=== PATIENT | female | born 1955 | race African-American/Black ===

== ENCOUNTER 2018-03-18 11:59 | Outpatient (CLI) | payer MEDICARE ==
[2014-07-13 12:42] VITALS: BP 137/69
[2018-03-18 12:36] LABS: eGFR (Non-African) > 60
[2018-03-18 16:02] LABS: BASO % 0.8 % (0.0-1.5); EOS % 4.9 % (0.0-6.8); LYMPH ABS # 3.07 thou/uL (0.60-4.00); MCV 104.8 fL (80.0-100.0); MONOCYTE % 5.7 % (0.0-11.0); MONOCYTE ABS # 0.35 thou/uL (0.00-0.90); PLATELET COUNT 255 thou/uL (130-400)
== END 2018-03-18 12:00 ==
LOC: LAB 11:59
PROVIDERS: ATTEND Family Medicine
DX: E78.00 Pure hypercholesterolemia, unspecified (principal); D53.9 Nutritional anemia, unspecified; I10 Essential (primary) hypertension
CPT/HCPCS: 36415; 80053; 80061; 85025

== ENCOUNTER 2018-10-22 13:37 | Emergency (ER) | payer MEDICARE ==
--- NOTE | 2018-10-22 14:05 | ED Physician Documentation ---
Sore Throat/Dental Pain - HISTORIAN Historian: patient - HPI Chief Complaint: Sore Throat Additional Information: several days cough sore throat lo gr fever Onset: days ago (4) Associated Symptoms: fever, sore throat, moderate Further Comments: yes (prod cough yellow but clearing now) - ROS CONST: no problems CVS/RESP: none. denies: chest pain, shortness of breath, palpitations MS/SKIN/LYMPH: denies: muscle aches, leg swelling, ankle swelling NEURO/PSYCH: none - PAST HX Past History: none (prev card arrythmia), other Other History: none Allergies/Adverse Reactions: Allergies Allergy/AdvReac Type Severity Reaction Status Date / Time No Known Allergies Allergy Verified 10/22/18 14:03 - SOCIAL HX Smoking History: cigarettes Alcohol Use: none - FAMILY HX Family History: Yes - VITAL SIGNS Vital Signs: Vital Signs Temp Pulse Resp BP Pulse Ox 137/69 07/13/14 12:41 - REVIEWED ASSESSMENTS Nursing Assessment Reviewed: Yes Vitals Reviewed: Yes ED Results Lab/Radiology - Lab Results Lab Results: rqpid strept= pos - Orders Orders: ED Orders Category Date Time Status Rapid Strep [GRP A STREP SCREEN] Stat Lab 10/22/18 Ordered Sore throat Physical Exam - EXAM General Appearance: mild distress Head/Neck: head nml inspection, no lymphadenopathy, cervical lymphadenopathy, anterior. No: pain over sinuses, mandibular swelling (R), mandibular swelling (L) Mouth/Throat: lips nml, gums nml. No: pharynx nml Ear/Nose: nml inspection Respiratory: no resp. distress, breath sounds nml CVS: reg. rate & rhythm, heart sounds nml Abdomen: soft, non-tender Extremities: non-tender, nml ROM Skin: warm/dry, normal color. No: cyanosis, diaphoresis, jaundice, mottled Neuro/Psych: oriented x3, mood/affect nml Discharge Clincal Impression: strept pharyngitis Referrals: Marko Harris MD [Primary Care Provider] - 2 Days Condition: Good Disposition: 01 HOME, SELF-CARE Decision to Admit: NO Decision Time: 14:12
[2018-10-22 14:10] VITALS: BP 116/78
== END 2018-10-22 14:13 | disposition home or self-care (01) ==
LOC: ED 13:37
DX: J02.0 Streptococcal pharyngitis (principal); Z72.0 Tobacco use
CPT/HCPCS: 87880; 99283

== ENCOUNTER 2019-04-10 09:52 | Emergency (ER) | payer MEDICARE ==
--- NOTE | 2019-04-10 10:05 | ED Physician Documentation ---
Nausea/Vomiting/Diarrhea - HISTORIAN Historian: patient, spouse - HPI Chief Complaint: Nausea,Vomiting,Diarrhea Additional Information: 63 year old female presents to the ER with . states that patient was not feeling well last night. She has been constipated and has been taking laxatives. She ate some fried chicken and fried apples last night. Denies being around anyone ill; had an episode this morning where she got hot and started sweating; then she had an episode of emesis. She states that she still feels nauseas and very weak. She took her Metoprolol this morning. Onset: hours Duration: waxing, waning Timing: gradual onset Context: denies: out of country travel, bad food Severity: moderate - Associated Symptoms Vomiting: mild, bilious (1 episode) Diarrhea: mild Abdominal Pain: burning, epigastric - ROS CONST: none CVS/RESP: denies: chest pain, shortness of breath GI/: constipation EYES/ENT: none MS/SKIN/LYMPH: denies: joint pain NEURO/PSYCH: none - PAST HX Past History: other (OA, ANSON) Other History: cardiac disease (PSVT with ablasion, HLD) Surgeries/Procedures: other (cardiac ablasion) Immunizations: UTD Allergies/Adverse Reactions: Allergies Allergy/AdvReac Type Severity Reaction Status Date / Time No Known Allergies Allergy Verified 04/10/19 10:14 Home Medications: Ambulatory Orders Medication Instructions Recorded Metoprolol Succinate [Toprol Xl] 1 tab PO DAILY 04/10/19 Ondansetron HCl Rapdis [Zofran Odt] 4 mg PO Q6H PRN #10 tab.rapdis 04/10/19 - SOCIAL HX Smoking History: greater than 1 pack/day Drug Use: none - FAMILY HX Family History: none - VITAL SIGNS Vital Signs: Vital Signs Temp Pulse Resp BP Pulse Ox 98.3 F 53 L 15 117/72 94 04/10/19 12:20 04/10/19 12:20 04/10/19 12:20 04/10/19 12:20 04/10/19 12:20 - REVIEWED ASSESSMENTS Nursing Assessment Reviewed: Yes Vitals Reviewed: Yes Progress - Progress Progress: 11:55 Patient sitting up to the side of the bed; feeling much better; nausea is almost gone; feels ready to go home. - EKG/XRAY/CT EKG: rhythm (SB with sinus arrhythmia at 53) ED Results Lab/Radiology - Lab Results Lab Results: Lab Results 04/10/19 04/10/19 10:12 10:12 WBC 7.10 K/ul K/ul (4.00-12.00) RBC 3.71 M/ul L M/ul (3.90-5.20) Hgb 12.6 g/dL g/dL (11.5-16.0) Hct 38.0 % % (34.5-46.5) MCV 102.0 fl H fl (80.0-100.0) MCH 34.0 pg pg (28.0-34.0) MCHC 33.2 g/dL g/dL (30.0-36.0) RDW 9.7 % L % (11.3-14.3) Plt Count 202 K/mm3 K/mm3 (130-400) Neut % (Auto) 67.0 % % (39.0-79.0) Lymph % (Auto) 23.6 % % (16.0-50.0) Bledsoe % (Auto) 7.0 % % (0.0-11.0) Eos % (Auto) 2.0 % % (0.0-6.8) Baso % (Auto) 0.4 % % (0.0-1.5) Neut # (Auto) 4.7 # k/uL # k/uL (1.4-7.7) Lymph # (Auto) 1.7 # k/uL # k/uL (0.6-4.0) Bledsoe # (Auto) 0.5 # k/uL # k/uL (0.0-0.9) Eos # (Auto) 0.1 # k/uL # k/uL (0.0-0.6) Baso # (Auto) 0.0 # k/uL # k/uL (0.0-0.5) Sodium 142 mmol/L mmol/L (137-145) Potassium 3.5 mmol/L mmol/L (3.5-5.1) Chloride 103 mmol/L mmol/L (98-107) Carbon Dioxide 25 mmol/L mmol/L (22-30) Anion Gap 17.5 BUN 13 mg/dL mg/dL (7-17) Creatinine 0.53 mg/dL mg/dL (0.52-1.04) Est GFR ( Amer) > 60 (60 - ) Est GFR (Non-Af Amer) > 60 (60 - ) Glucose 169 mg/dL H mg/dL (74-106) Calcium 9.4 mg/dL mg/dL (8.4-10.2) Total Bilirubin 1.5 mg/dL H mg/dL (0.2-1.3) AST 97 U/L H U/L (15-46) ALT 38 U/L H U/L (0-35) Alkaline Phosphatase 133 U/L H U/L (38-126) Troponin I < 0.012 ng/mL L ng/mL (0.012-0.034) Total Protein 9.8 g/dL H g/dL (6.3-8.2) Albumin 4.6 g/dL g/dL (3.5-5.0) Amylase 82 U/L U/L (30-110) Lipase 47 U/L U/L (23-300) - Radiology Radiology Impressions: Exam: CT abdomen and pelvis with contrast. History: Elevated liver enzymes. Nausea and vomiting. Axial images through the abdomen and pelvis after IV infusion of 90 cc Omnipaque is submitted along with sagittal and coronal reformatted images. The visualized lower lung galicia are clear. A moderate size hiatal hernia is identified. No free intraperitoneal air is identified. The gallbladder is distended without stones. The liver, spleen and pancreas are normal attenuation and enhancement. The adrenal glands are normal configuration. The abdominal aorta is of normal caliber. No periaortic lymphadenopathy is identified. Both kidneys are normal attenuation and enhancement without hydronephrosis. The urinary bladder is partially distended. The uterus is deviated to the right of midline and is anteflexed. Surgical clips in the adnexa bilaterally indicates previous sterilization. The appendix is of normal configuration. The small bowel is of normal caliber. Air and stool seen throughout the large intestine. No bony abnormalities are identified. Impression: Moderate size hiatal hernia. No hydronephrosis. Nonspecific bowel gas pattern. The appendix is of normal configuration. No inflammatory changes in the mesentery or ascites is identified. - Orders Orders: ED Orders Category Date Time Status Continuous EKG monitoring Q30M Care 04/10/19 09:58 Active Continuous Pulse Oximetry Q30M Care 04/10/19 09:[address] IV Lock 1T Care 04/10/19 09:[address] ABD & PELVIS W & W/O CON Stat Exams 04/10/19 Completed AMYLASE Routine Lab 04/10/19 10:12 Completed CBC/PLATELET/DIFF Stat Lab 04/10/19 10:12 Completed CMP Stat Lab 04/10/19 10:12 Completed LIPASE Stat Lab 04/10/19 10:12 Completed TROPONIN I Stat Lab 04/10/19 10:12 Completed URINALYSIS Routine Lab 04/10/19 10:11 Ordered 0.9 % Sodium Chloride [Normal Saline] 1,000 ml Med 04/10/19 10:02 Discontinued IV Q1H Ondansetron HCl/Pf [Zofran] Med 04/10/19 10:03 Discontinued 4 mg IVP NOW ONE Promethazine HCl [Phenergan] 25 mg Med 04/10/19 10:41 Discontinued 0.9 % Sodium Chloride [Normal Saline] 50 ml IV NOW EKG WITH COMPARISON Stat Ther 04/10/19 09:58 Ordered Nausea Physical Exam - EXAM General Appearance: alert, moderate distress EENT: eye inspection normal, ENT inspection normal, pharynx normal, dry mucous membranes Neck: supple Respiratory: breath sounds normal CVS: bradycardia Abdomen: tenderness Back: non-tender Skin: warm/dry, pallor Extremities: non-tender, normal range of motion Neuro/Psych: oriented X3, sensation nml, weakness/sensory loss (weakness) Discharge Clincal Impression: Nausea and vomiting Prescriptions: Ondansetron HCl Rapdis [Zofran Odt] 4 mg PO Q6H PRN #10 tab.rapdis PRN Reason: Nausea / Vomiting Referrals: Marko Harris MD [Primary Care Provider] - 2 Days 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 by mouth every 6 hours as needed for nausea Increase water intake Start with a bland diet; no greasy, fried, or spicy foods Follow up with PCP next week for re-evaluation Condition: Good Disposition: 01 HOME, SELF-CARE Decision to Admit: NO Decision Time: 13:00
[2019-04-10] MEDS: ONDANSETRON HCL/PF 4 MG/ 2ML VIAL IVP ONE (10:08)
[2019-04-10] MEDS: 0.9 % SODIUM CHLORIDE 1,000 ML IV ONE (10:11)
[2019-04-10 10:12] LABS: BASOPHILS % 0.4 % (0.0-1.5); NEUTROPHILS # 4.7 # k/uL (1.4-7.7)
[2019-04-10 10:23] LABS: eGFR (Non-African) > 60
[2019-04-10] MEDS: PROMETHAZINE HCL 25 MG in 0.9 % SODIUM CHLORIDE 50 ML IV ONE (10:46)
--- NOTE | 2019-04-10 11:46 | Diagnostic Imaging Report ---
PATIENT MR#: [id number] PATIENT PATIENT NAME: JONNA HOUSTON DATE OF : 1955 REFERRING PHYSICIAN: Lucy Arthur EXAM DATE: 04/10/2019 ACCESSION NUMBER: [id number] EXAM DESCRIPTION: CT ABD PELVIS W W/ Exam: CT abdomen and pelvis with contrast. History: Elevated liver enzymes. Nausea and vomiting. Axial images through the abdomen and pelvis after IV infusion of 90 cc Omnipaque is submitted along w ith sagittal and coronal reformatted images. The visualized lower lung galicia are clear. A moderate size hiatal hernia is identified. No free in traperitoneal air is identified. The gallbladder is distended without stones. The liver, spleen and pancreas are normal attenuation a nd enhancement. The adrenal glands are normal configuration. The abdominal aorta is of normal caliber. No periaorti c lymphadenopathy is identified. Both kidneys are normal attenuation and enhancement without hydronephrosis. The urinary bladder is p artially distended. The uterus is deviated to the right of midline and is anteflexed. Surgical clips in the adnexa bilat erally indicates previous sterilization. The appendix is of normal configuration. The small bowel is of normal caliber. Air and stool seen t hroughout the large intestine. No bony abnormalities are identified. Impression: Moderate size hiatal hernia. No hydronephrosis. Nonspecific bowel gas pattern. The appendix is of normal configuration. No inflammatory changes in the mesentery or ascites is identified. Read by: Dr. Erik Person Transcribed by: Transcribed Date: Electronically signed by: Dr. Erik Person Date signed: 04/10/2019 11:45:51 AM
[2019-04-10 13:01] VITALS: BP 117/72
== END 2019-04-10 12:20 | disposition home or self-care (01) ==
LOC: ED 09:52
DX: R11.2 Nausea with vomiting, unspecified (principal); R19.7 Diarrhea, unspecified
CPT/HCPCS: 74178; 80053; 82150; 83690; 84484; 85025; 93005; 96361; 96374; 99284; J2405; J2550; J7030; Q9967; S1016

== ENCOUNTER 2019-05-02 15:02 | Outpatient (CLI) | payer MEDICARE | END 2019-05-02 15:07 | LOC: LABRHC 15:02 | PROVIDERS: ATTEND Family Medicine | DX: R73.09 Other abnormal glucose (principal) | CPT/HCPCS: 83036 ==